=== PATIENT | male | born 1980 | race Caucasian/White ===

== ENCOUNTER 2019-04-30 09:58 | Emergency (ER) | payer OTHER ==
--- NOTE | 2019-04-30 10:24 | ED ---
GI/ HPI - HPI Summary HPI Summary: Patient is a 38 y/o M presenting to the ED for a chief complaint of urinary burning for the last several days. On the morning of 04/30/19, patient also noticed hematuria while urinating. Patient believes that he has a bladder stone because he saw a stone after last urinating. He denies fever, abdominal pain, back pain, or penile drainage or erythema. No aggravating or alleviating factors are reported. PMHx of bladder stones, kidney stones, or STD infections are denied. - History of Current Complaint Chief Complaint: EDUrogenitalProblems Time Seen by Provider: 04/30/19 10:17 Stated Complaint: URINATING BLOOD PER PT Hx Obtained From: Patient Onset/Duration: Atraumatic, Still Present Timing: Constant Severity: Severe Current Severity: Moderate Pain Intensity: 10 Additional Locations for Males: Penis Associated Signs and Symptoms: Positive: Hematuria, UTI Symptoms - Positive urinary burning. Negative: Back Pain, Discharge - Penile, Fever, Abdominal Pain Additional Signs & Symptoms: Negative: Penile Discharge Aggravating Factor(s): Nothing Alleviating Factor(s): Nothing - Allergy/Home Medications Allergies/Adverse Reactions: Allergies Allergy/AdvReac Type Severity Reaction Status Date / Time No Known Allergies Allergy Verified 04/30/19 10:03 Home Medications: Home Medications Albuterol HFA INHALER* [Ventolin HFA Inhaler*] 1 - 2 puff INH Q4H PRN 04/30/19 [ History Confirmed 04/30/19] Beclomethasone 80 MCG MDI(NF) [Qvar 80 MCG MDI(NF)] 2 puff INH BID 04/30/19 [ History Confirmed 04/30/19] Blackberry Gummy 1 gum PO DAILY 04/30/19 [History Confirmed 04/30/19] LoraTADine TAB(NF) [Claritin 10 MG TAB(NF)] 10 mg PO DAILY 04/30/19 [History Confirmed 04/30/19] Pravastatin (NF) [Pravachol (NF)] 10 mg PO QPM 04/30/19 [History Confirmed 04/29] Sulfamethox/Trimethoprim DS* [Bactrim DS 800/160 TAB*] 1 tab PO BID 7 Days #14 tab 04/30/19 [Rx] metFORMIN* [Glucophage 1000 MG TAB *] 1,000 mg PO BID 04/30/19 [History Confirmed 04/30/19] PMH/Surg Hx/FS Hx/Imm Hx Previously Healthy: Yes History: Denies: Hx Kidney Stones, Hx Renal Disease, Other Problems/Disorders - No bladder stone Hx Sensory History: Denies: Hx Legally Blind, Hx Deafness Opthamlomology History: Denies: Hx Legally Blind EENT History: Denies: Hx Deafness - Surgical History Surgical History: None Surgery Procedure, Year, and Place: None Infectious Disease History: No Infectious Disease History: Denies: Traveled Outside the [place] in Last 30 Days - Family History Known Family History: Negative: Cardiac Disease, Hypertension, Diabetes - Social History Occupation: Unemployed Lives: Alone Hx Substance Use: No Substance Use Type: Reports: None Hx Tobacco Use: No Smoking Status (MU): Never Smoked Tobacco Review of Systems Negative: Fever Negative: Abdominal Pain Positive: burning - Urinary, hematuria. Negative: other - Negative penile discharge or erythema Negative: Myalgia - Back pain All Other Systems Reviewed And Are Negative: Yes Physical Exam - Summary Physical Exam Summary: Constitutional: Well-developed, Well-nourished, Alert. (-) Distressed Skin: Warm, Dry HENT: Normocephalic; Atraumatic Eyes: Conjunctiva normal Neck: Musculoskeletal ROM normal neck. (-) JVD, (-) Stridor, (-) Nuchal rigidity Cardio: Rhythm regular, rate normal, Heart sounds normal; Intact distal pulses; Radial pulses are 2+ and symmetric. (-) Murmur Pulmonary/Chest wall: Effort normal. (-) Respiratory distress, (-) Wheezes, (-) Rales Abd: Soft, (-) tenderness, (-) Distension, (-) Guarding, (-) Rebound Musculoskeletal: (-) Edema Lymph: (-) Cervical adenopathy Neuro: Alert, Oriented x3 Psych: Mood and affect Normal Triage Information Reviewed: Yes Vital Signs On Initial Exam: Initial Vitals Temp Pulse Resp BP Pulse Ox 98.4 F 107 16 134/96 100 04/30/19 09:58 04/30/19 09:58 04/30/19 09:58 04/30/19 09:58 04/30/19 09:58 Vital Signs Reviewed: Yes Procedures - Sedation Patient Received Moderate/Deep Sedation with Procedure: No Diagnostics - Vital Signs Vital Signs Temp Pulse Resp BP Pulse Ox 04/30/19 09:58 98.4 F 107 16 134/96 100 - Laboratory Lab Statement: Any lab studies that have been ordered have been reviewed, and results considered in the medical decision making process. GIGU Course/Dx - Course Course Of Treatment: 38 y/o male p/w dysuria and hematuria. - VSS NAD. No abd or flank pain. Thinks he may have passed a stone (brought small stone w him). UA w protein, RBC and trace LE. 3+ bacteria, treat w bactrim BID 7 days. Awaiting UC. GC/Chlamydia sent, denies exposures. Suspect pain 2/2 irritation from stone. F/u w PCP - Diagnoses Provider Diagnoses: Dysuria, Hematuria Discharge ED - Sign-Out/Discharge Documenting (check all that apply): Patient Departure - Discharge - Discharge Plan Condition: Stable Disposition: HOME Prescriptions: Sulfamethox/Trimethoprim DS* [Bactrim DS 800/160 TAB*] 1 tab PO BID 7 Days #14 tab Patient Education Materials: Hematuria (ED), Dysuria (ED) Referrals: Deepak Cross MD [Primary Care Provider] - Additional Instructions: You were seen in the emergency department for dysuria and hematuria. Your urine showed trace bacteria and blood. We sent your urine stone for analysis. Please take Bactrim twice a day for 7 days. If any studies were not completed at the time of discharge you will be called with the relevant results. Please follow up with your primary care doctor in next 2-3 days and return to emergency department for worsening pain, fevers, or concerning symptoms. It was a pleasure taking care of you today. - Billing Disposition and Condition Condition: STABLE Disposition: Home - Attestation Statements Document Initiated by Warneribe: Yes Documenting Scribe: Aaliyah Rosales Provider For Whom Beau is Documenting (Include Credential): Willian Leon MD Scribe Attestation: Aaliyah Bynum, scribed for Willian Leon MD on 04/30/19 at 1223. Scribe Documentation Reviewed: Yes Provider Attestation: The documentation as recorded by the warneribeAaliyah accurately reflects the service I personally performed and the decisions made by me, Willian Leon MD Status of Scribe Document: Viewed
[2019-04-30 11:53] LABS: Urine Appearance Cloudy; Urine Bilirubin Negative (Negative); Urine Blood 2+ (Negative); Urine Color Yellow; Urine Glucose Negative (Negative); Urine Ketones Trace (Negative); Urine Nitrite Negative (Negative); Urine Protein 2+(100 mg/dL) (Negative); Urine Specific Gravity 1.026 (1.010-1.030); Urine Urobilinogen Negative (Negative)
[2019-04-30 12:05] LABS: Urine Bacteria Absent (Absent); Urine Red Blood Cell 3+(>10/hpf) (Absent); Urine Squamous Epithelial Cell Present (Absent); Urine White Blood Cell 3+(>20/hpf) (Absent)
[2019-04-30 12:35] VITALS: BP 123/96
[2019-05-01 12:10] LABS: Chlamydia trachomatis NAA Negative (Negative); Neisseria gonorrhoeae (GC) NAA Negative (Negative)
== END 2019-04-30 12:34 | disposition home or self-care (01) ==
LOC: ED 09:58
DX: R30.0 Dysuria (principal); R31.9 Hematuria, unspecified; Z79.84 Long term (current) use of oral hypoglycemic drugs; Z79.899 Other long term (current) drug therapy
CPT/HCPCS: 81003; 81015; 82365; 87077; 87086; 87186; 87491; 87591; 88300; 99282

== ENCOUNTER 2019-05-01 19:56 | Emergency (ER) | payer OTHER ==
--- OUTSIDE RECORDS SUMMARY | 2019-05-01 20:06 | XMS REPORT | Continuity of Care Document ---
:1980 External Reference #:[id number] Author Name Deepak Cross MD Address [address] [place] [id number] Problems Description No Information Available Social History Type Date Description Comments Sex Unknown Tobacco Use Start: Unknown Never Smoked Cigarettes ETOH Use Occasionally consumes alcohol Exercise Type/Frequency Does not exercise Allergies, Adverse Reactions, Alerts Description No Known Drug Allergies Medications Active Medications SIG Qnty Indications Ordering Date Provider B-D Use 1 Swab 100units Deepak 02/10/2019 Reg Pad Externally Twice MD Tay Daily When Checking Blood Glucose True Metrix Meter use meter the 1units Deepak 01/05/2018 insurance will MD Tay W/Device Kit cover. dx code e11.9 True Metrix Blood Use 1 Strip To 50units Deepak 01/05/2018 Glucosetest Strips Check Glucose MD Tay Three Times Daily Strips Freestyle Use 1 To Check 100units E11.65 Deepak 01/03/2018 Lancets Glucose Twice MD Tay Daily For Blood Glucose Testing Freestyle Lancets use 2 times a day 120units Deepak 01/03/2018 as instructed for MD Tay [facility] [place] Alcohol Prep Used twice day 1000units Deepak 01/03/2018 Pads when checking BG MD Tay Ibuprofen take 1 tablet by 90tabs M79.672 Deepak 09/26/2017 600mg mouth three times MD Tay Tablets daily as needed Metformin HCL Take 1 tablet by 60tabs E11.65 Deepak 09/26/2017 1000mg mouth twice daily MD Tay Tablets Qvar Redihaler Inhale 2 Puffs 11units Deepak 10/13/2016 Twice Daily For MD Tay 80mcg/Act Aerosol Asthma Ventolin HFA 1-2 puffs four 16gm Deepak times a day as MD Tay 108(90Base) mcg/Act needed Aerosol Pravastatin Sodium Take 1 Tablet By 90tabs Deepak Mouth Once Daily MD Tay 10mg Tablets Eq Loratadine Take One Tablet 30tabs Deepak 10mg By Mouth Once MD Tay Tablets Daily Myorisan Take 1 Capsule By Unknown 20mg Mouth Twice Daily Capsules Ketoconazole Use To Shampoo Unknown 2% Three To Four Shampoo Times A Week Medications Administered in Office Medication SIG Qnty Indications Ordering Provider Date Vitamin B-12 Injection-To Deepak Cross MD 09/26/2017 1000mcg Injection Vitamin B-12 Injection-To Deepak Cross MD 01/05/2016 1000mcg Injection Immunizations CPT Code Status Date Vaccine Lot # [id number] Given 10/25/2018 Influenza Virus Vaccine, Quadrivalent, 3 Yr > [id number] Quad, Preserv Free [id number] Given 01/02/2018 Influenza Virus Vaccine, Quadrivalent, 3 Yr > [id number] Quad, Preserv Free 20472 Given 11/03/2016 Influenza Virus Vaccine, Quadrivalent, 3 Yr > [id number] Quad, Preserv Free 50296 Given 01/05/2016 Tdap (Adacel) [id number] Given 12/01/2015 Influenza Virus Vaccine, Quadrivalent, 3 Yr > [id number] Quad, Preserv Free Vital Signs Date Vital Result Comment 12/27/2018 3:05pm Weight 199.00 lb Weight 90.266 kg BP Systolic 120 mmHg BP Diastolic 74 mmHg Heart Rate 88 /min Body Temperature 98.1 F Respiratory Rate 16 /min O2 % BldC Oximetry 97 % 10/25/2018 2:56pm Weight 200.00 lb Weight 90.720 kg BP Systolic 118 mmHg BP Diastolic 80 mmHg Heart Rate 119 /min Body Temperature 98.4 F Respiratory Rate 16 /min O2 % BldC Oximetry 98 % Results Test Acquired Date Facility Test Result H/L Range Note Urinalysis Profile 04/30/2019 [facility] Urine Color Yellow [phone] Urine Appearance Cloudy Urine Specific [place] 1.026 Normal 1.010-1.030 Urine pH 5.0 Normal 5-9 Urine Urobilinogen Negative Negative Urine Ketones Trace Abnormal Negative Urine Protein 2+(100 mg/dL) Abnormal Negative Urine Leukocytes Trace Abnormal Negative Urine Blood 2+ Abnormal Negative Urine Nitrite Negative Negative Urine Bilirubin Negative Negative Urine Glucose Negative Negative Urine White Blood Cell 3+(>20/hpf) Abnormal Absent Urine Red Blood Cell 3+(>10/hpf) Abnormal Absent Urine Bacteria Absent Absent Urine Squamous Epithelial Cell Present Abnormal Absent GC/Chlamydia 04/30/2019 [facility] Disclaimer ( SEE NOTE) 1 Amplified Rna [phone] Chlamydia trachomatis Zulma Negative Negative Neisseria gonorrhoeae (GC) Zulma Negative Negative 1 As with all diagnostic procedures, the laboratory results obtained should be used in conjunction with other clinical information available to the physician, including confirmation by another method, as applicable. Procedures Description No Information Available Medical Devices Description No Information Available Encounters Type Date Location Provider Dx Diagnosis Office Visit 12/27/2018 Main Office Deepak Cross E11.65 Type 2 diabetes 3:15p mellitus with hyperglycemia M25.571 Pain in right ankle and joints of right foot Assessments Date Code Description Provider 12/27/2018 E11.65 Type 2 diabetes mellitus with hyperglycemia Deepak Cross MD 12/27/2018 M25.571 Pain in right ankle and joints of right foot Deepak Cross MD Plan of Treatment Future Appointment(s):06/27/2019 3:00 pm - Deepak Cross MD at [facility]/27/2018 - Deepak Cross MDE11.65 Type 2 diabetes mellitus with hyperglycemiaComments:Primary measures proven to improve life expectancy:Smoking -NonsmokerBlood pressure-WNL on no [id number]-Viilvd A1c-5.6 last time. Secondary measures:-Diabetic foot exam annually- seeing podiatry- Diabetic retinopathy screen annually- Due 06/26-Microalbumin yearly- Tertiary measures:-HBVvaccine-Pneumovax -Nutritional ybpppbqpkg-NGA-5-Alcohol use screening-exercise kkhzahfK26.571 Pain in right ankle and joints of right footComments:No explanation noted at this point for his now chronic ankle pain. With his worsening issue and surgical history I sent him to orthopedics.Follow up:REfer to orthoedics for ankle and foot pain Functional Status Description No Information Available Mental Status Description No Information Available Referrals Refer to Reason for Referral Status Appt Date Shawn Ponce Referral to Dr. Ponce for consult, evaluation. Closed 01/[address] [place] [id number] [phone]
--- NOTE | 2019-05-01 20:11 | ED ---
GI/ HPI - HPI Summary HPI Summary: 38 year old male presents with hematuria today. He was seen yesterday and ended up passing a small stone. He does have family history of kidney stones. He did have some penile pain with the hematuria but none currently. He denies any testicular pain. He has not urinated since. He admits to urgency and hesitancy. He started the Bactrim today. He has no pain currently. No flank pain. No fevers. No nausea or vomiting. Has no medical conditions. He is not on blood thinners. - History of Current Complaint Chief Complaint: EDUrogenitalProblems Time Seen by Provider: 05/01/19 20:05 Stated Complaint: BLOOD IN URINE PER PT Pain Intensity: 9 - Allergy/Home Medications Allergies/Adverse Reactions: Allergies Allergy/AdvReac Type Severity Reaction Status Date / Time No Known Allergies Allergy Verified 04/30/19 10:03 Home Medications: Home Medications Albuterol HFA INHALER* [Ventolin HFA Inhaler*] 1 - 2 puff INH Q4H PRN 04/30/19 [ History Confirmed 05/01/19] Beclomethasone 80 MCG MDI(NF) [Qvar 80 MCG MDI(NF)] 2 puff INH BID 04/30/19 [ History Confirmed 05/01/19] Blackberry Gummy 1 gum PO DAILY 04/30/19 [History Confirmed 05/01/19] LoraTADine TAB(NF) [Claritin 10 MG TAB(NF)] 10 mg PO DAILY 04/30/19 [History Confirmed 05/01/19] Pravastatin (NF) [Pravachol (NF)] 10 mg PO QPM 04/30/19 [History Confirmed 04/30] Sulfamethox/Trimethoprim DS* [Bactrim DS 800/160 TAB*] 1 tab PO BID 7 Days #14 tab 04/30/19 [Rx Confirmed 05/01/19] metFORMIN* [Glucophage 1000 MG TAB *] 1,000 mg PO BID 04/30/19 [History Confirmed 05/01/19] PMH/Surg Hx/FS Hx/Imm Hx Endocrine/Hematology History: Denies: Hx Anticoagulant Therapy Respiratory History: Denies: Hx Asthma History: Denies: Hx Kidney Stones, Hx Renal Disease, Other Problems/Disorders - No bladder stone Hx Sensory History: Denies: Hx Legally Blind, Hx Deafness Opthamlomology History: Denies: Hx Legally Blind - Surgical History Surgery Procedure, Year, and Place: None Infectious Disease History: No Infectious Disease History: Denies: Traveled Outside the [place] in Last 30 Days - Family History Known Family History: Positive: Other - kidney stones Negative: Cardiac Disease, Hypertension, Diabetes - Social History Alcohol Use: None Hx Substance Use: No Substance Use Type: Reports: None Hx Tobacco Use: No Smoking Status (MU): Never Smoked Tobacco Review of Systems Negative: Fever Negative: Chest Pain Negative: Shortness Of Breath Negative: Abdominal Pain, Vomiting Positive: hematuria. Negative: flank pain All Other Systems Reviewed And Are Negative: Yes Physical Exam Triage Information Reviewed: Yes Vital Signs On Initial Exam: Initial Vitals Temp Pulse Resp BP Pulse Ox 98.3 F 103 18 134/108 100 05/01/19 19:58 05/01/19 19:58 05/01/19 19:58 05/01/19 19:58 05/01/19 19:58 Vital Signs Reviewed: Yes Appearance: Positive: Well-Appearing Skin: Positive: Warm, Dry Head/Face: Positive: Normal Head/Face Inspection Eyes: Positive: Normal, Conjunctiva Clear ENT: Positive: Pharynx normal Respiratory/Lung Sounds: Positive: Clear to Auscultation, Breath Sounds Present Cardiovascular: Positive: Normal, RRR Abdomen Description: Positive: Nontender, Soft. Negative: CVA Tenderness (R), CVA Tenderness (L) Bowel Sounds: Positive: Present Musculoskeletal: Positive: Normal Neurological: Positive: Normal Psychiatric: Positive: Normal Procedures - Sedation Patient Received Moderate/Deep Sedation with Procedure: No Diagnostics - Vital Signs Vital Signs Temp Pulse Resp BP Pulse Ox 05/01/19 19:58 98.3 F 103 18 134/108 100 - Laboratory Result Diagrams: 05/01/19 20:19 05/01/19 20:19 Lab Statement: Any lab studies that have been ordered have been reviewed, and results considered in the medical decision making process. - CT abd CT Interpretation Completed By: Radiologist Summary of CT Findings: IMPRESSION: Mild right hydronephrosis and hydroureter. No obstructing calculus. Findings may represent recent passage of calculus. GIGU Course/Dx - Course Course Of Treatment: 38 year old male presents with hematuria today. He was seen yesterday and ended up passing a small stone. He does have family history of kidney stones. He did have some penile pain with the hematuria but none currently. He denies any testicular pain. He has not urinated since. He admits to urgency and hesitancy. He started the Bactrim today. He has no pain currently. No flank pain. No fevers. No nausea or vomiting. Has no medical conditions. He is not on blood thinners. On exam nontender abdomen. Nontender flanks. bladder scan 18ml. wbc normal. crp normal. CT abd shows hydro but no stone. discussed likely passed another stone. will wait on urine culture from previous visit as patient was placed on bactrim. told follow up with urology. patient understand and agrees with plan. - Diagnoses Differential Diagnoses - Male: Pyelonephritis, Ureteral Calculi, Urinary Tract Infection Provider Diagnoses: Hematuria Discharge ED - Sign-Out/Discharge Documenting (check all that apply): Patient Departure - Discharge Plan Condition: Good Disposition: HOME Patient Education Materials: Kidney Stones (ED) Referrals: Deepak Cross MD [Primary Care Provider] - Enzo Zuniga MD [Medical Doctor] - Additional Instructions: follow up with urology drink plenty of fluids Take ibuprofen every 6 hours as needed for pain Return to ED if develop any new or worsening symptoms - Billing Disposition and Condition Condition: GOOD Disposition: Home
[2019-05-01 20:35] LABS: ABS Eosinophils 0.4 10^3/ul (0-0.6); ABS Lymphocytes 1.6 10^3/ul (1.0-4.8); ABS Monocytes 0.6 10^3/ul (0-0.8); ABS Neutrophils 4.1 10^3/ul (1.5-7.7); Eosinophil % 6.2 %; Hematocrit 39 % (42-52); Lymphocyte % 23.6 %; Mean Corpuscular HGB Conc 33 g/dL (31-36); Mean Corpuscular Hemoglobin 29 pg (27-31); Mean Corpuscular Volume 88 fL (80-94); Mean Platelet Volume 8.6 fL (7.4-10.4); Nucleated Red Blood Cells % 0.2; Platelet Count 261 10^3/uL (150-450); Red Blood Count 4.45 10^6 /uL (4.18-5.48); Red Cell Distribution Width 14 % (10-15); White Blood Count 6.8 10^3/uL (3.5-10.8)
[2019-05-01 20:50] LABS: Albumin 4.4 g/dL (3.2-5.2); Calcium 9.5 mg/dL (8.6-10.3); Potassium 3.5 mmol/L (3.5-5.0); Total Bilirubin 0.3 mg/dL (0.2-1.0)
[2019-05-01 20:56] LABS: Albumin/Globulin Ratio 1.4 (1-3); BUN/Creatinine Ratio 23.7 (8-20); C Reactive Protein 4.68 mg/L (<8.01); EGFR African American 138.9 (>60); EGFR Non-African American 114.8 (>60); Globulin 3.1 g/dL (2-4); Total Protein 7.5 g/dL (6.4-8.9)
[2019-05-01 21:14] VITALS: BP 115/89
== END 2019-05-01 21:43 | disposition home or self-care (01) ==
LOC: ED 19:56
DX: R31.9 Hematuria, unspecified (principal); N13.30 Unspecified hydronephrosis; Z79.84 Long term (current) use of oral hypoglycemic drugs; Z79.899 Other long term (current) drug therapy
CPT/HCPCS: 36415; 74176; 80053; 85025; 86140; 99282